=== PATIENT | female | born 1955 | race Caucasian/White ===

== ENCOUNTER 2016-09-23 00:28 | Emergency (ER) | payer OTHER ==
[2016-09-23] MEDS ORDERED: Morphine INJ* 4 MG/ML 1 ML SYRINGE IV ONE (01:17)
[2016-09-23] MEDS ORDERED: NS 0.9% 1000 ML* 1,000 ML IV ONE (01:17)
[2016-09-23] MEDS ORDERED: Ondansetron INJ* 2 MG/ML VIAL IV ONE (01:17)
[2016-09-23 02:14] LABS: Hematocrit 39 % (35-47); Hemoglobin 13.3 g/dl (12.0-16.0); Mean Corpuscular HGB Conc 34 g/dl (31-36); Mean Corpuscular Hemoglobin 32 pg (27-31); Mean Corpuscular Volume 93 fL (80-97); Mean Platelet Volume 8 um3 (7.4-10.4); Red Blood Count 4.17 10^6/ul (4.0-5.4); Red Cell Distribution Width 13 % (10.5-15); White Blood Count 8.6 10^3/ul (3.5-10.8)
[2016-09-23 02:20] LABS: Urine Bilirubin Negative (Negative); Urine Glucose Negative (Negative); Urine Nitrite Negative (Negative)
[2016-09-23 02:28] LABS: Albumin 4.2 g/dL (3.2-5.2); BUN/Creatinine Ratio 17.4 (8-20); C Reactive Protein 34.78 mg/L (< 5.00); Calcium 9.4 mg/dL (8.6-10.3); EGFR African American 111.6 (>60); EGFR Non-African American 86.8 (>60); Globulin 2.5 g/dL (2-4); Potassium 3.6 mmol/L (3.5-5.0); Total Bilirubin 0.6 mg/dL (0.2-1.0); Total Protein 6.7 g/dL (6.4-8.9)
--- NOTE | 2016-09-23 02:33 | ED ---
Paras Guzman Billy, scribed for Ford Oliva MD on 09/23/16 at 0117 . Abdominal Pain/Female - HPI Summary HPI Summary: This is a 61 year-old female coming to [facility] for evaluation of RLQ pain. She states that the pain began at 199909/22/16. She had not felt well throughout the day, stating that she had felt very fatigued. She first began to notice abdominal cramping as she was taking a bath, and the pain worsened rapidly. She reports nausea and dry heaves, as well as fever. Denies any urinary symptoms. She has a strong family history of Crohn's disease and has regular colonoscopies. She reports that diverticulosis was appreciated on a recent exam. Due to the family history, she states that she is very careful about her diet, but is otherwise quite healthy, taking no medications. PSHx of appendectomy. - History of Current Complaint Chief Complaint: EDAbdPain Stated Complaint: SEVERE ABD PAIN Time Seen by Provider: 09/23/16 01:13 Hx Obtained From: Patient Onset/Duration: Gradual Onset, Lasting Hours Timing: Constant Severity Initially: Moderate Severity Currently: Moderate Pain Intensity: 7 Pain Scale Used: 0-10 Numeric Location: Discrete At: RLQ Radiates: No Character: Cramping Aggravating Factor(s): Nothing Alleviating Factor(s): Nothing Associated Signs and Symptoms: Positive: Fever, Nausea Allergies/Adverse Reactions: Allergies Allergy/AdvReac Type Severity Reaction Status Date / Time Aspirin Allergy Airway Verified 09/23/16 00:35 Obstruction Codeine Allergy Rash And Verified 09/23/16 00:35 Itching Sulfa Antibiotics Allergy Rash And Verified 09/23/16 00:35 Itching PMH/Surg Hx/FS Hx/Imm Hx Endocrine/Hematology History: Denies: Hx Diabetes Cardiovascular History: Denies: Hx Hypertension GI History: Reports: Hx Diverticulosis Infectious Disease History: No Infectious Disease History: Denies: Traveled Outside the [place] in Last 30 Days - Family History Family History: There is family history of Crohn's Disease. - Social History Alcohol Use: Rare Substance Use Type: Reports: None Smoking Status (MU): Never Smoked Tobacco Review of Systems Positive: Fever Positive: Abdominal Pain, Nausea Negative: dysuria All Other Systems Reviewed And Are Negative: Yes Physical Exam Triage Information Reviewed: Yes Vital Signs On Initial Exam: Initial Vitals Temp Pulse Resp BP Pulse Ox 101.2 F 103 16 145/80 100 09/23/16 00:32 09/23/16 00:32 09/23/16 00:32 09/23/16 00:32 09/23/16 00:32 Vital Signs Reviewed: Yes Appearance: Positive: Well-Appearing, No Pain Distress Skin: Positive: Warm Head/Face: Positive: Normal Head/Face Inspection Eyes: Positive: KALEB ENT: Positive: Hearing grossly normal Neck: Positive: Supple, Nontender Respiratory/Lung Sounds: Positive: Breath Sounds Present Cardiovascular: Positive: RRR Abdomen Description: Positive: Soft, Other: - mild diffuse lower abd tenderness. Negative: Guarding Bowel Sounds: Positive: Present Musculoskeletal: Positive: Strength/ROM Intact Neurological: Positive: Sensory/Motor Intact Psychiatric: Positive: Affect/Mood Appropriate Diagnostics - Vital Signs Vital Signs Temp Pulse Resp BP Pulse Ox 09/23/16 01:08 90 99 09/23/16 00:56 145/71 09/23/16 00:32 101.2 F 103 16 145/80 100 - Laboratory Lab Results: Lab Results 09/23/16 09/23/16 09/23/16 Range/Units 01:05 01:05 01:05 WBC 8.6 (3.5-10.8) 10^3/ul RBC 4.17 (4.0-5.4) 10^6/ul Hgb 13.3 (12.0-16.0) g/dl Hct 39 (35-47) % MCV 93 (80-97) fL MCH 32 H (27-31) pg MCHC 34 (31-36) g/dl RDW 13 (10.5-15) % Plt Count 189 (150-450) 10^3/ul MPV 8 (7.4-10.4) um3 Neut % (Auto) 80.6 (38-83) % Lymph % (Auto) 11.7 L (25-47) % [place] % (Auto) 7.2 (1-9) % Eos % (Auto) 0.3 (0-6) % Baso % (Auto) 0.2 (0-2) % Absolute Neuts (auto) 7.0 (1.5-7.7) 10^3/ul Absolute Lymphs (auto) 1.0 (1.0-4.8) 10^3/ul Absolute Monos (auto) 0.6 (0-0.8) 10^3/ul Absolute Eos (auto) 0 (0-0.6) 10^3/ul Absolute Basos (auto) 0 (0-0.2) 10^3/ul Absolute Nucleated RBC 0 10^3/ul Nucleated RBC % 0 INR (Anticoag Therapy) 0.93 (0.89-1.11) Sodium 135 (133-145) mmol/L Potassium 3.6 (3.5-5.0) mmol/L Chloride 103 (101-111) mmol/L Carbon Dioxide 25 (22-32) mmol/L Anion Gap 7 (2-11) mmol/L BUN 12 (6-24) mg/dL Creatinine 0.69 (0.51-0.95) mg/dL Est GFR ( Amer) 111.6 (>60) Est GFR (Non-Af Amer) 86.8 (>60) BUN/Creatinine Ratio 17.4 (8-20) Glucose 119 H (70-100) mg/dL Lactic Acid (0.5-2.0) mmol/L Calcium 9.4 (8.6-10.3) mg/dL Magnesium 2.0 (1.9-2.7) mg/dL Total Bilirubin 0.60 (0.2-1.0) mg/dL AST 22 (13-39) U/L ALT 18 (7-52) U/L Alkaline Phosphatase 57 (34-104) U/L C-Reactive Protein 34.78 H (< 5.00) mg/L Total Protein 6.7 (6.4-8.9) g/dL Albumin 4.2 (3.2-5.2) g/dL Globulin 2.5 (2-4) g/dL Albumin/Globulin Ratio 1.7 (1-3) Lipase 15 (11.0-82.0) U/L Urine Color Urine Appearance Urine pH (5-9) Ur Specific [place] (1.010-1.030) Urine Protein (Negative) Urine Ketones (Negative) Urine Blood (Negative) Urine Nitrate (Negative) Urine Bilirubin (Negative) Urine Urobilinogen (Negative) Ur Leukocyte Esterase (Negative) Urine Glucose (Negative) 09/23/16 09/23/16 Range/Units 01:05 02:05 WBC (3.5-10.8) 10^3/ul RBC (4.0-5.4) 10^6/ul Hgb (12.0-16.0) g/dl Hct (35-47) % MCV (80-97) fL MCH (27-31) pg MCHC (31-36) g/dl RDW (10.5-15) % Plt Count (150-450) 10^3/ul MPV (7.4-10.4) um3 Neut % (Auto) (38-83) % Lymph % (Auto) (25-47) % [place] % (Auto) (1-9) % Eos % (Auto) (0-6) % Baso % (Auto) (0-2) % Absolute Neuts (auto) (1.5-7.7) 10^3/ul Absolute Lymphs (auto) (1.0-4.8) 10^3/ul Absolute Monos (auto) (0-0.8) 10^3/ul Absolute Eos (auto) (0-0.6) 10^3/ul Absolute Basos (auto) (0-0.2) 10^3/ul Absolute Nucleated RBC 10^3/ul Nucleated RBC % INR (Anticoag Therapy) (0.89-1.11) Sodium (133-145) mmol/L Potassium (3.5-5.0) mmol/L Chloride (101-111) mmol/L Carbon Dioxide (22-32) mmol/L Anion Gap (2-11) mmol/L BUN (6-24) mg/dL Creatinine (0.51-0.95) mg/dL Est GFR ( Amer) (>60) Est GFR (Non-Af Amer) (>60) BUN/Creatinine Ratio (8-20) Glucose (70-100) mg/dL Lactic Acid 0.8 (0.5-2.0) mmol/L Calcium (8.6-10.3) mg/dL Magnesium (1.9-2.7) mg/dL Total Bilirubin (0.2-1.0) mg/dL AST (13-39) U/L ALT (7-52) U/L Alkaline Phosphatase (34-104) U/L C-Reactive Protein (< 5.00) mg/L Total Protein (6.4-8.9) g/dL Albumin (3.2-5.2) g/dL Globulin (2-4) g/dL Albumin/Globulin Ratio (1-3) Lipase (11.0-82.0) U/L Urine Color Straw Urine Appearance Clear Urine pH 8.0 (5-9) Ur Specific [place] 1.004 L (1.010-1.030) Urine Protein Negative (Negative) Urine Ketones Negative (Negative) Urine Blood Negative (Negative) Urine Nitrate Negative (Negative) Urine Bilirubin Negative (Negative) Urine Urobilinogen Negative (Negative) Ur Leukocyte Esterase Negative (Negative) Urine Glucose Negative (Negative) Result Diagrams: 09/23/16 01:05 09/23/16 01:05 Lab Statement: Any lab studies that have been ordered have been reviewed, and results considered in the medical decision making process. - CT abd/pel CT Interpretation Completed By: Radiologist - Focal diverticulitis of the proximal transverse colon. 9.9cm right hepatic cavernous hemangioma. Moderate amount of diffuse solid stool. Re-Evaluation - Re-Evaluation First Eval Change: Improved - results d/w pt Abdominal Pain Fem Course/Dx - Diagnoses Provider Diagnoses: Diverticulitis Discharge - Discharge Plan Condition: Improved Disposition: HOME Referrals: Non Staff,Doctor [Primary Care Provider] - The documentation as recorded by the Paras mahmood Billy accurately reflects the service I personally performed and the decisions made by me, Ford Oliva MD.
[2016-09-23] MEDS ORDERED: Iohexol 300* (CONTRAST) 10 ML SDV IV ONE (03:10)
[2016-09-23] MEDS ORDERED: Ketorolac INJ* 30 MG/ML 1 ML VIAL IV PUSH ONE (04:15)
[2016-09-23] MEDS ORDERED: metroNIDAZOLE IV 500 MG/100ML* 500 MG/100 ML BAG IVPB ONE (04:28)
[2016-09-23] MEDS ORDERED: Levofloxacin 500 MG IVPREMIX(* 500 MG/100 ML BAG IVPB ONE (04:28)
[2016-09-23 06:57] VITALS: BP 92/56
--- NOTE | 2016-09-23 08:04 | RAD ---
INDICATION: Right lower quadrant abdominal pain history of appendectomy and known hepatic hemangioma. COMPARISON: There are no prior studies available for comparison. TECHNIQUE: A CT scan of the abdomen and pelvis was performed with intravenous and oral contrast following intravenous injection of 81 ml of Omnipaque 300 nonionic contrast. Contiguous axial sections were obtained from the lung bases through the symphysis pubis. Images were reconstructed in the coronal and sagittal planes. FINDINGS: There is mild dependent bilateral lower lobe subsegmental atelectasis. No pleural effusion is present. The liver is mildly enlarged. There is a simple cyst present in the lateral segment of the left hepatic lobe measuring 3.0 cm in size. In addition there is a large exophytic lesion arising from the inferior portion of the right hepatic lobe measuring 10.1 x 7.2 x 10.0 cm in size. This is discontinuous peripheral nodular enhancement with some fill-in on the delayed images and would be consistent with a large hemangioma and the patient's clinical history. No calcified gallstones are seen. No intra-axial hepatic ductal distention is noted. The spleen appears within normal limits in size. The pancreas appears to be within normal limits. The kidneys and adrenal glands are normal in size. No hydronephrosis is seen. No significant focal renal abnormality is seen. The aorta is normal in caliber and demonstrates homogeneous contrast opacification. No significant enlarged retroperitoneal lymph nodes are seen. The stomach, small and large bowel appear nondistended. Surgical clips are noted adjacent to the medial aspect of the cecum consistent with the patient's history of a prior appendectomy. There is a large amount of retained stool present throughout the colon. There are scattered diverticuli within the colon. There is focal wall thickening present in the proximal transverse colon with stranding in the surrounding mesenteric fat and an associated diverticulum which appears inflamed most consistent with diverticulitis. No abscess is seen. There is a small amount of free intraperitoneal fluid present. No free intraperitoneal air is seen. There is mild grade I anterior spondylolisthesis at the L3-L4 level. No fracture is seen. No other focal osseous abnormalities are noted. IMPRESSION: 1. THERE IS WALL THICKENING IN THE PROXIMAL TRANSVERSE COLON WITH INTERSTITIAL STRANDING IN THE SURROUNDING MESENTERIC FAT MOST CONSISTENT WITH DIVERTICULITIS. RECOMMEND A FOLLOW-UP COLONOSCOPY FOR FURTHER EVALUATION. 2. LARGE HEPATIC MASS CONSISTENT WITH THE PATIENT'S KNOWN HISTORY OF A LARGE HEMANGIOMA.
== END 2016-09-23 07:00 | disposition home or self-care (01) ==
LOC: ED 00:28
DX: K57.92 Diverticulitis of intestine, part unspecified, without perforation or abscess without bleeding (principal); R10.31 Right lower quadrant pain; R50.9 Fever, unspecified; R11.0 Nausea
CPT/HCPCS: 36415; 74177; 80053; 81003; 83605; 83690; 83735; 85025; 85610; 86140; 99284; J1885; J1956; J2270; J2405; Q9967